=== PATIENT | female | born 1965 | race Caucasian/White ===

== ENCOUNTER → 2017-03-11 | Outpatient (CLI) | payer BC ==
--- NOTE | 2017-03-11 12:15 | DIAGNOSTIC IMAGING REPORT ---
LEFT HAND 3 VIEWS HISTORY: S69.92XA Injury of left ring finger [id number] COMPARISON: None. FINDINGS: There is no fracture or dislocation. Mild soft tissue swelling at the PIP joint of the ring finger. No radiopaque foreign bodies. IMPRESSION: No fracture or dislocation within the left hand. Electronically signed by: Karlos Koo M.D. 03/11/2017 12:14 PM Dictated Date/Time: 03/11/2017 12:12 PM
== END | disposition home or self-care (01) ==
LOC: C.RAD1850 11:57
PROVIDERS: ATTEND Internal Medicine
DX: S69.92XA Unspecified injury of left wrist, hand and finger(s), initial encounter (principal); X58.XXXA Exposure to other specified factors, initial encounter

== ENCOUNTER → 2017-03-31 | Outpatient (CLI) | payer BC | END | disposition home or self-care (01) | LOC: C.LAB1850 09:33 | PROVIDERS: ATTEND Obstetrics & Gynecology | DX: N95.1 Menopausal and female climacteric states (principal) ==

== ENCOUNTER → 2017-04-03 | Outpatient (CLI) | payer BC ==
--- NOTE | 2017-04-03 10:55 | DIAGNOSTIC IMAGING REPORT ---
THYROID ULTRASOUND HISTORY: E04.1 Thyroid cyst [id number]. COMPARISON: None. FINDINGS: Right lobe: 4.9 x 1.6 x 1.4 cm. No nodules. Left lobe: 4.5 x 1.3 x 1.5 cm. No nodules. Isthmus: 3 mm in thickness. No nodules. Miscellaneous: A a small lymph node adjacent to the left carotid artery which measure subcentimeter in short axis diameter. Therefore, this does not meet sonographic criteria for pathology. IMPRESSION: Normal thyroid ultrasound. Electronically signed by: Karlos Koo M.D. 04/03/2017 10:53 AM Dictated Date/Time: 04/03/2017 10:50 AM
== END | disposition home or self-care (01) ==
LOC: C.ULTR 09:00
PROVIDERS: ATTEND Obstetrics & Gynecology
DX: E04.1 Nontoxic single thyroid nodule (principal)

== ENCOUNTER → 2017-06-10 | Outpatient (CLI) | payer BC ==
--- NOTE | 2017-06-10 15:17 | MAMMOGRAPHY REPORT ---
BILATERAL DIGITAL SCREENING MAMMOGRAM TOMOSYNTHESIS WITH CAD: 06/10/2017 CLINICAL HISTORY: Routine screening. Patient has no complaints. TECHNIQUE: Breast tomosynthesis in addition to standard 2D mammography was performed. Current study was also evaluated with a Computer Aided Detection (CAD) system. COMPARISON: Comparison is made to exams dated: 06/06/2016 mammogram, 06/04/2015 mammogram, 05/31/2014 mammogram, 05/13/2013 mammogram, 05/11/2012 mammogram, and 03/28/2011 mammogram - [facility]. BREAST COMPOSITION: There are scattered areas of fibroglandular density in both breasts. FINDINGS: No suspicious masses, calcifications, or areas of architectural distortion are noted in ei ther breast. There has been no significant interval change compared to prior exams. Again noted are post surgical changes in the right upper outer quadrant from prior benign surgical excision. Loosely grouped benign-appearing calcifications in the right upper outer quadrant are stable and likely repr esent dermal calcifications. Bilateral asymmetries are stable compared to prior exams. IMPRESSION: ACR BI-RADS CATEGORY 2: BENIGN There is no mammographic evidence of malignancy. A 1 year screening mammogram is recommended. The pa tient will receive written notification of the results. Approximately 10% of breast cancers are not detected with mammography. A negative mammographic report should not delay biopsy if a clinically suggestive mass is present. Yessy Mackey M.D. /:06/10/2017 12:18:41 [employer] Associate: Valerie MA(Alverto)(M), [facility] letter sent: Normal 1/2 BI-RADS Code: ACR BI-RADS Category 2: Benign
== END | disposition home or self-care (01) ==
LOC: C.MAMM 09:21
PROVIDERS: ATTEND Obstetrics & Gynecology
DX: Z12.31 Encounter for screening mammogram for malignant neoplasm of breast (principal)

== ENCOUNTER → 2018-02-06 | Outpatient (CLI) | payer BC ==
[2018-02-06 11:12] LABS: ALBUMIN 3.6 gm/dl (3.4-5.0); ALKALINE PHOSPHATASE 56 U/L (45-117); ALT/SGPT 22 U/L (12-78); AST/SGOT 13 U/L (15-37); BLOOD UREA NITROGEN 11 mg/dl (7-18); CALCIUM 8.4 mg/dl (8.5-10.1); CARBON DIOXIDE 28 mmol/L (21-32); CHOLESTEROL 130 mg/dl (0-200); CREATININE 0.62 mg/dl (0.60-1.20); GLUCOSE 81 mg/dl (70-99); LDL CHOLESTEROL CALCULATED 56 mg/dl; POTASSIUM 4.5 mmol/L (3.5-5.1); SODIUM 142 mmol/L (136-145); TOTAL PROTEIN 6.4 gm/dl (6.4-8.2)
== END | disposition home or self-care (01) ==
LOC: C.LAB1850 08:23
PROVIDERS: ATTEND Internal Medicine
DX: R53.83 Other fatigue (principal); J34.3 Hypertrophy of nasal turbinates; E55.9 Vitamin D deficiency, unspecified